=== PATIENT | male | born 1960 | race Caucasian/White ===

== ENCOUNTER 2017-08-13 08:41 | Day surgery (SDC) | payer BC ==
[~2017-08-13 08:41] MED LIST: Lactated Ringers 1,000 ML IV SCH; Lidocaine 2% 5 ML SDV ONE; Midazolam 1 MG/ML 2 ML SDV ONE; Propofol 200 MG/20 ML SDV ONE; Sodium Chloride 0.9% 10 ML Syringe FLUSH PRN; Sodium Chloride 0.9% 2.5 ML Syringe FLUSH PRN; fentaNYL 100 MCG/2 ML SDV ONE
--- NOTE | 2017-08-13 09:15 | PCM.PREANE ---
Preanesthetic Assessment - Anesthesia/Transfusion/Family Hx Anesthesia History: Prior Anesthesia Without Reaction Other Type of Anesthesia Reaction Comment: Denies any known problems Family History of Anesthesia Reaction: No Transfusion History: No Prior Transfusion(s) - Review of Systems General: No Symptoms Pulmonary: Other (severe ANGELIA, not yet fit with CPAP) Cardiovascular: No Symptoms Gastrointestinal: Other (hx of barretts, but no barretts found on last EGD) Neurological: No Symptoms Other: Reports: None - Physical Assessment NPO Status Date: 08/12/17 NPO Status Time: 07:30 (lori gabriel) Height: 1.93 m Weight: 163.293 kg ASA Class: 3 Mental Status: Alert & Oriented x3 Airway Class: Mallampati = 2 Dentition: Reports: Normal Dentition ROM/Head Extension: Full Lungs: Clear to Auscultation, Normal Respiratory Effort Cardiovascular: Regular Rate, Regular Rhythm - Allergies Allergies/Adverse Reactions: Allergies Allergy/AdvReac Type Severity Reaction Status Date / Time No Known Allergies Allergy Verified 08/10/17 09:51 - Acknowledgements Anesthesia Type Planned: MAC Pt an Appropriate Candidate for the Planned Anesthesia: Yes Alternatives and Risks of Anesthesia Discussed w Pt/Guardian: Yes Pt/Guardian Understands and Agrees with Anesthesia Plan: Yes PreAnesthesia Questionnaire - Past Health History Medical/Surgical History: Denies Medical/Surgical History HEENT History: Reports: Impaired Vision Other HEENT History: wears glasses Cardiovascular History: Reports: None Respiratory History: Reports: Other (See Below) Other Respiratory History: getting tested for sleep apnea on september 03 Gastrointestinal History: Reports: GERD, Other (See Below) Other Gastrointestinal History: barretts esophagus Genitourinary History: Reports: None Musculoskeletal History: Reports: Arthritis, Back Pain, Chronic, Fracture, Other (See Below) Other Musculoskeletal History: hx of fx finger, removal of lump from right axilla Neurological History: Reports: Other (See Below) Other Neuro History: restless leg syndrome Psychiatric History: Reports: Anxiety, Depression Endocrine/Metabolic History: Reports: Hypothyroidism, Obesity/BMI 30+ Hematologic History: Reports: None Immunologic History: Reports: None Oncologic (Cancer) History: Reports: None Dermatologic History: Reports: None - Past Surgical History Head Surgeries/Procedures: Reports: None HEENT Surgical History: Reports: None Cardiovascular Surgical History: Reports: None Respiratory Surgical History: Reports: None GI Surgical History: Reports: EGD, Hernia, Inguinal Male Surgical History: Reports: None Endocrine Surgical History: Reports: None Neurological Surgical History: Reports: None Oncologic Surgical History: Reports: None - SUBSTANCE USE Smoking Status *Q: Former Smoker Tobacco Use Within Last Twelve Months: No Days Per Week of Alcohol Use: 0 Number of Drinks Per Day: 0 Total Drinks Per Week: 0 Recreational Drug Use History: No - HOME MEDS Home Medications: Home Meds Aspirin 81 mg PO DAILY 09/27/13 [History] Levothyroxine 200 mcg PO DAILY 09/27/13 [History] Omeprazole [Prilosec] 20 mg PO ACBRK 09/27/13 [History] Fish Oil/[place]-3 Fatty Acids [Fish Oil 1,000 MG] 1 cap PO DAILY 07/25/15 [ History] Testosterone Cypionate [Depo-Testosterone] 1 dose IM ASDIRECTED 07/25/15 [ History] Acetaminophen with Codeine [Tylenol with Codeine #3 Tablet] 1 tab PO ASDIRECTED PRN 08/10/17 [History] Gabapentin [Neurontin] 2 tab PO TID 08/10/17 [History] Gluc HCl/Csa/Harvey Hy/Hyalur Ac [Glucosamine Chondroitin] 2 tab PO DAILY [History] LORazepam 1 tab PO ASDIRECTED PRN 08/10/17 [History] Meloxicam 15 mg PO ASDIRECTED 08/10/17 [History] Multivits-Minerals/FA/Lycopene [One Daily Men's Health Tablet] 1 tab PO DAILY [History] Pramipexole Di-HCl [Pramipexole Dihydrochloride] 1 tab PO BID 08/10/17 [History] buPROPion HCl [Wellbutrin Xl] 150 mg PO DAILY 08/10/17 [History] - CURRENT (IN HOUSE) MEDS Current Meds: Current Medications Lactated Ringer's (Ringers, Lactated) 1,000 mls @ 125 mls/hr IV ASDIRECTED [facility] Last Admin: 08/13/17 09:05 Dose: 125 mls/hr Sodium Chloride (Saline Flush) 10 ml FLUSH ASDIRECTED PRN PRN Reason: Keep Vein Open Sodium Chloride (Saline Flush) 2.5 ml FLUSH ASDIRECTED PRN PRN Reason: Keep Vein Open Sodium Chloride (Saline Flush) 10 ml FLUSH ASDIRECTED PRN PRN Reason: Keep Vein Open Sodium Chloride (Saline Flush) 2.5 ml FLUSH ASDIRECTED PRN PRN Reason: Keep Vein Open Discontinued Medications Fentanyl (Sublimaze) Confirm Administered Dose 100 mcg .ROUTE .STK-MED ONE Stop: 08/13/17 08:14 Lidocaine (Xylocaine-Mpf 2%) Confirm Administered Dose 5 ml .ROUTE .STK-MED ONE Stop: 08/13/17 08:14 Midazolam HCl (Versed 1 Mg/Ml) Confirm Administered Dose 2 mg .ROUTE .STK-MED ONE Stop: 08/13/17 08:14 Propofol (Diprivan 20 Ml) Confirm Administered Dose 400 mg .ROUTE .STK-MED ONE Stop: 08/13/17 08:14
[2017-08-13] MEDS ORDERED: Propofol 200 MG/20 ML SDV ONE ×3 (09:30→10:02)
--- NOTE | 2017-08-13 10:25 | PCM.OPNOTE ---
- General Post-Op/Procedure Note Date of Surgery/Procedure: 08/13/17 Operative Procedure(s): Diagnostic EGD and screening colonoscopy Findings: -Hyperplastic gastric polyp -Esophagitis -Cecal polyp @ 110 -Transverse colon polyp @ 80 -Rectal polyps x 2 Pre Op Diagnosis: Barrets esophagus, screening colonoscopy Post-Op Diagnosis: Hyperplastic gastric polyp, esophagitis, cecal polyp, transverse colon polyp, rectal poplyp x 2 Anesthesia Technique: MAC Primary Surgeon: Val Alvarez Condition: Good
--- NOTE | 2017-08-13 10:37 | PCM.POSTAN ---
POST ANESTHESIA ASSESSMENT - MENTAL STATUS Mental Status: Alert, Oriented - RESPIRATORY Respiratory Status: Respiratory Rate WNL, Airway Patent, O2 Saturation Stable - CARDIOVASCULAR CV Status: Pulse Rate WNL, Blood Pressure Stable - GASTROINTESTINAL GI Status: No Symptoms - POST OP HYDRATION Hydration Status: Adequate & Stable
--- NOTE | 2017-08-13 10:38 | PCM48HPAN ---
Post Anesthesia Note - EVALUATION WITHIN 48HRS OF ANESTHETIC Vital Signs in Normal Range: Yes Patient Participated in Evaluation: Yes Respiratory Function Stable: Yes Airway Patent: Yes Cardiovascular Function Stable: Yes Hydration Status Stable: Yes Pain Control Satisfactory: Yes Nausea and Vomiting Control Satisfactory: Yes Resp Rate: 15 - COMMENTS/OBSERVATIONS Free Text/Narrative:: pt and cautioned about the risk of worsening ANGELIA for the next few nights.
[2017-08-13 11:14] VITALS: BP 118/81
--- NOTE | 2017-08-13 14:54 | OR ---
SURGEON: ARIANNE MALLOY MD DATE OF PROCEDURE: 08/13/2017 PREOPERATIVE DIAGNOSES: 1. History of Cobian esophagus. 2. Screening colonoscopy. POSTOPERATIVE DIAGNOSES: 1. Esophagitis. 2. Hyperplastic gastric polyp. 3. Cecal polyp. 4. Transverse colon polyp. 5. Rectal polyp x2. PROCEDURES PERFORMED: Diagnostic esophagogastroduodenoscopy and screening colonoscopy. ANESTHESIA: MAC. INSTRUMENT USED: Olympus endoscope and colonoscope. EXTENT OF EXAM: To the second portion of duodenum, to the cecum. PREPARATION: Good. LIMITATIONS: None. INDICATION FOR EXAMINATION: The patient is a 56-year-old male, who presents with a past medical history significant for Cobian esophagus. His last biopsies were 3 years ago and showed moderate esophagitis. The patient has been on PPI therapy ever since. He is here for repeat endoscopy. On further questioning, he never undergone a colonoscopy. We discussed both procedures as well as expected perioperative course. We discussed the risks including bleeding, infection, or damage to surrounding structures including perforation. The patient verbalized understanding and wishes to proceed. PROCEDURE IN DETAIL: The patient was brought to the endoscopy suite and placed in a left lateral decubitus position. A time-out was completed verifying the patient's name, age, date of , allergies, and procedure to be performed. A bite block was placed in the patient's mouth and monitored anesthesia care was induced. Continuous oxygen was provided via nasal cannula throughout the procedure. After adequate sedation was achieved, a well lubricated endoscope was placed in the patient's mouth and advanced under direct visualization to the second portion of duodenum. This appeared normal and a photograph was taken. The scope was then fully withdrawn while examining the color, texture, anatomy, and integrity of the mucosa of the upper GI tract. The intestinal mucosa appeared normal. The scope was brought into the stomach and a photograph was taken of the pylorus as well as the GE junction. Both appeared normal. The patient was noted to have a hyperplastic polyp in the body of the stomach along the greater curvature. This was removed and sent to pathology, labeled as gastric polyp. No further biopsies in the stomach were taken. The scope was then brought into the distal esophagus. A photograph was taken of the Z-line. This appeared slightly irregular. Biopsies were taken at the Z-line and then 1 cm above this and an another centimeter above that. Four-quadrant biopsies were taken and sent to pathology. The area appeared to be hemostatic after these biopsies. The patient does appear to have some mild esophagitis. The remainder of the esophageal mucosa appeared normal and the scope was removed. This part of the procedure was terminated. A digital rectal exam was performed. This exam was within normal limits. A well lubricated colonoscope was inserted in the rectum and advanced under direct visualization to the level of the cecum. The cecum was identified by both visual and anatomic landmarks. Photograph was taken of cecal cap as well as with the scope retroflexed within the cecum. The patient was found to have a 5 to 6 mm pedunculated polyp just above the cecal cap at 110 cm. This was removed using a hot snare. This was then sent to pathology, labeled as cecal polyp. The patient was found to have another polyp in the transverse colon at 80 cm. This was removed in a similar fashion. The scope was brought into the rectum. The patient was noted to have two pedunculated rectal polyps measuring about 2 to 3 mm in size. These were removed one with a snare and one using a cold biopsy forceps. All areas were hemostatic at the time I left. The colon was normal. The scope was then retroflexed into the rectum and a photograph was taken of the anal canal opening. The scope was then straightened out and fully withdrawn. The cecum to anus time was greater than 20 minutes. The patient tolerated the procedure well and was taken to PACU in stable condition. ENDOSCOPIC DIAGNOSES: 1. Esophagitis. 2. Hyperplastic gastric polyp. 3. Cecal polyp. 4. Transverse colon polyp. 5. Rectal polyp x2. RECOMMENDATIONS: Follow up in clinic in 2 weeks to review the pathology. KYM NGUYEN /[id number]
== END 2017-08-13 10:57 | disposition home or self-care (01) ==
LOC: MW.SDS 08:41
PROVIDERS: ATTEND Surgery
DX: Z12.11 Encounter for screening for malignant neoplasm of colon (principal); D12.0 Benign neoplasm of cecum; D12.3 Benign neoplasm of transverse colon; K62.1 Rectal polyp; K29.50 Unspecified chronic gastritis without bleeding; K31.7 Polyp of stomach and duodenum; K20.9 Esophagitis, unspecified; K22.70 Barrett's esophagus without dysplasia; E03.9 Hypothyroidism, unspecified; G25.81 Restless legs syndrome; G47.30 Sleep apnea, unspecified; K21.9 Gastro-esophageal reflux disease without esophagitis; M19.90 Unspecified osteoarthritis, unspecified site; F41.9 Anxiety disorder, unspecified; F32.9 Major depressive disorder, single episode, unspecified; E66.9 Obesity, unspecified; Z68.41 Body mass index [BMI] 40.0-44.9, adult; Z79.82 Long term (current) use of aspirin; Z79.899 Other long term (current) drug therapy; Z98.890 Other specified postprocedural states; Z87.891 Personal history of nicotine dependence; Z80.0 Family history of malignant neoplasm of digestive organs
CPT/HCPCS: 43239; 45380; 45385; 88305; J2250; J3010; J7120; 00813; J2704

== ENCOUNTER 2020-08-21 11:08 | Day surgery (SDC) | payer BC ==
[~2020-08-21 11:08] MED LIST changes: -Lidocaine 2% 5 ML SDV ONE; +Sodium Chloride 0.9% 10 ML SDV IV PRN
--- NOTE | 2020-08-21 12:06 | PCM.PREANE ---
Preanesthetic Assessment - Anesthesia/Transfusion/Family Hx Anesthesia History: Prior Anesthesia Without Reaction Other Type of Anesthesia Reaction Comment: Denies any known problems Family History of Anesthesia Reaction: No Transfusion History: No Prior Transfusion(s) - Review of Systems General: No Symptoms Pulmonary: No Symptoms Cardiovascular: No Symptoms Gastrointestinal: No Symptoms Neurological: No Symptoms Other: Reports: None - Physical Assessment NPO Status Date: 08/21/20 NPO Status Time: 00:01 Vital Signs: Last Vital Signs Temp 97.2 F 08/21/20 11:38 Pulse 104 H 08/21/20 11:38 Resp 15 08/21/20 11:38 BP 130/78 08/21/20 11:38 Pulse Ox 99 08/21/20 11:38 Height: 6 ft 4 in Weight: 366 lb ASA Class: 3 Mental Status: Alert & Oriented x3 Airway Class: Mallampati = 2 Dentition: Reports: Normal Dentition ROM/Head Extension: Limited/Partial Lungs: Clear to Auscultation, Normal Respiratory Effort Cardiovascular: Regular Rate, Regular Rhythm - Allergies Allergies/Adverse Reactions: Allergies Allergy/AdvReac Type Severity Reaction Status Date / Time No Known Allergies Allergy Verified 08/15/20 15:18 - Anesthesia Plan Pre-Op Medication Ordered: None - Acknowledgements Anesthesia Type Planned: General Anesthesia Pt an Appropriate Candidate for the Planned Anesthesia: Yes Alternatives and Risks of Anesthesia Discussed w Pt/Guardian: Yes Pt/Guardian Understands and Agrees with Anesthesia Plan: Yes Additional Comments: npo after mn tob quit 2001 etoh occ morbid obesity bmi 43 depression anxiety rls has 3 brothers with hx esophageal CA par no questions PreAnesthesia Questionnaire - Past Health History Medical/Surgical History: Denies Medical/Surgical History HEENT History: Reports: Impaired Vision Other HEENT History: wears glasses Cardiovascular History: Reports: None Respiratory History: Reports: Sleep Apnea, Other (See Below) Other Respiratory History: uses CPAP Gastrointestinal History: Reports: Colon Polyp, GERD, Other (See Below) Other Gastrointestinal History: barretts esophagus Genitourinary History: Reports: None Musculoskeletal History: Reports: Arthritis, Fracture, Other (See Below) Other Musculoskeletal History: hx of fx finger, removal of lump from right axilla Neurological History: Reports: Other (See Below) Other Neuro History: restless leg syndrome Psychiatric History: Reports: Anxiety, Depression Endocrine/Metabolic History: Reports: Hypothyroidism, Obesity/BMI 30+ Hematologic History: Reports: None Immunologic History: Reports: None Oncologic (Cancer) History: Reports: None Dermatologic History: Reports: None - Past Surgical History Head Surgeries/Procedures: Reports: None HEENT Surgical History: Reports: None Cardiovascular Surgical History: Reports: None Respiratory Surgical History: Reports: None GI Surgical History: Reports: Colonoscopy, EGD, Hernia, Inguinal Male Surgical History: Reports: None Endocrine Surgical History: Reports: None Neurological Surgical History: Reports: None Musculoskeletal Surgical History: Reports: None Oncologic Surgical History: Reports: None Dermatological Surgical History: Reports: None - SUBSTANCE USE Tobacco Use Status *Q: Former Tobacco User Tobacco Use Within Last Twelve Months: No - HOME MEDS Home Medications: Home Meds Aspirin 81 mg PO DAILY 09/27/13 [History] Omeprazole [Prilosec] 2 tab PO DAILY 09/27/13 [History] Fish Oil/[place]-3 Fatty Acids [Fish Oil 1,000 MG] 1 cap PO DAILY 07/25/15 [History] Testosterone Cypionate [Depo-Testosterone] 1 dose IM ASDIRECTED 07/25/15 [History] Acetaminophen with Codeine [Tylenol with Codeine #3 Tablet] 1 tab PO ASDIRECTED PRN 08/10/17 [History] LORazepam 0.5 mg PO ASDIRECTED PRN 08/10/17 [History] Multivit-Minerals/FA/Lycopene [One Daily Men's Health Tablet] 1 tab PO DAILY 08/10/17 [History] DULoxetine HCl [Cymbalta] 60 mg PO ASDIRECTED 08/15/20 [History] Levothyroxine Sodium [Synthroid] 1 tab PO DAILY 08/15/20 [History] - CURRENT (IN HOUSE) MEDS Current Meds: Current Medications Lactated Ringer's (Ringers, Lactated) 1,000 mls @ 125 mls/hr IV ASDIRECTED [facility] Last Admin: 08/21/20 12:03 Dose: 125 mls/hr Documented by: Sodium Chloride (Sodium Chloride 0.9% 10 Ml Syringe) 10 ml FLUSH ASDIRECTED PRN PRN Reason: Keep Vein Open Sodium Chloride (Sodium Chloride 0.9% 2.5 Ml Syringe) 2.5 ml FLUSH ASDIRECTED PRN PRN Reason: Keep Vein Open Sodium Chloride (Sodium Chloride 0.9% 10 Ml Syringe) 10 ml FLUSH ASDIRECTED PRN PRN Reason: Keep Vein Open Sodium Chloride (Sodium Chloride 0.9% 2.5 Ml Syringe) 2.5 ml FLUSH ASDIRECTED PRN PRN Reason: Keep Vein Open Sodium Chloride (Sodium Chloride 0.9% 10 Ml Sdv) 10 ml IV ASDIRECTED PRN PRN Reason: IV Use Discontinued Medications Fentanyl (Fentanyl 100 Mcg/2 Ml Sdv) Confirm Administered Dose 100 mcg .ROUTE .STK-MED ONE Stop: 08/21/20 07:46 Lidocaine HCl (Lidocaine 1% 5 Ml Sdv) Confirm Administered Dose 5 ml .ROUTE .STK-MED ONE Stop: 08/21/20 07:47 Lidocaine HCl (Lidocaine 1% 5 Ml Sdv) Confirm Administered Dose 5 ml .ROUTE .STK-MED ONE Stop: 08/21/20 07:58 Midazolam HCl (Midazolam 1 Mg/Ml 2 Ml Sdv) Confirm Administered Dose 2 mg .ROUTE .STK-MED ONE Stop: 08/21/20 07:46 Propofol (Propofol 200 Mg/20 Ml Sdv) Confirm Administered Dose 200 mg .ROUTE .STK-MED ONE Stop: 08/21/20 07:46
--- NOTE | 2020-08-21 12:37 | PCM.OPNOTE ---
- General Post-Op/Procedure Note Date of Surgery/Procedure: 08/21/20 Operative Procedure(s): Diagnostic EGD with biopsy Findings: Hiatal hernia. No evidence of baez's on narrow band imaging and gross appearance Pre Op Diagnosis: History of barretts esophagus, hiatal hernia Post-Op Diagnosis: same Anesthesia Technique: MAC Primary Surgeon: Val Alvarez Condition: Good
--- NOTE | 2020-08-21 12:48 | PCM.POSTAN ---
POST ANESTHESIA ASSESSMENT - MENTAL STATUS Mental Status: Alert (no anesthetic problems), Oriented - VITAL SIGNS Vital Signs: Last Vital Signs Temp 97.2 F 08/21/20 11:38 Pulse 93 08/21/20 12:43 Resp 13 08/21/20 12:43 BP 120/76 08/21/20 12:43 Pulse Ox 93 L 08/21/20 12:43 - RESPIRATORY Respiratory Status: Respiratory Rate WNL, Airway Patent, O2 Saturation Stable - CARDIOVASCULAR CV Status: Pulse Rate WNL, Blood Pressure Stable - GASTROINTESTINAL GI Status: No Symptoms - POST OP HYDRATION Hydration Status: Adequate & Stable
[2020-08-21 12:56] VITALS: BP 126/69; PULSE 88
--- NOTE | 2020-08-21 13:10 | PCM48HPAN ---
Post Anesthesia Note - EVALUATION WITHIN 48HRS OF ANESTHETIC Vital Signs in Normal Range: Yes Patient Participated in Evaluation: Yes Respiratory Function Stable: Yes Airway Patent: Yes Cardiovascular Function Stable: Yes Hydration Status Stable: Yes Pain Control Satisfactory: Yes Nausea and Vomiting Control Satisfactory: Yes Mental Status Recovered: Yes Vital Signs: Last Vital Signs Temp 97.2 F 08/21/20 12:49 Pulse 88 08/21/20 12:49 Resp 14 08/21/20 12:49 BP 126/69 08/21/20 12:49 Pulse Ox 93 L 08/21/20 12:49
--- NOTE | 2020-08-22 09:46 | OR ---
SURGEON: VAL ALVAREZ MD DATE OF PROCEDURE: 08/21/2020 PREOPERATIVE DIAGNOSES: History of Cobian's esophagus, hiatal hernia. POSTOPERATIVE DIAGNOSES: History of Cobian's esophagus, hiatal hernia. PROCEDURE PERFORMED: Diagnostic esophagogastroduodenoscopy with biopsy. PRIMARY SURGEON: Val Alvarez MD ANESTHESIA: MAC. INSTRUMENT USED: Olympus endoscope. EXTENT OF EXAM: To the second portion of the duodenum. PREPARATION: Good. LIMITATIONS: None. INDICATIONS FOR EXAMINATION: The patient is a 59-year-old male who was diagnosed with Cobian's esophagus some years ago. He had an EGD 3 years ago, which showed chronic esophagitis but no evidence of Cobian's. He is here for a 3-year followup EGD. I explained the need for the procedure, expected perioperative course, and the risks. He verbalized understanding and wishes to proceed. PROCEDURE IN DETAIL: The patient was brought in to the endoscopy suite and placed in a beach chair position. A time-out was completed verifying the patient's name, age, date of , allergies, and procedure to be performed. A bite block was placed in the patient's mouth. Monitored anesthesia care was induced, and continuous oxygen was provided via face mask throughout the procedure. After adequate sedation was achieved, a well-lubricated endoscope was placed in the patient's mouth and advanced under direct visualization to the level of the second portion of duodenum. This appeared normal, and a photograph was taken. The scope was then straightened out and fully withdrawn while examining the color, texture, anatomy, and integrity of mucosa of the upper GI tract. The duodenum appeared normal. The scope was brought into the stomach, and photograph taken of the pylorus and GE junction. The patient had a hiatal hernia. There were small hyperplastic polyps within the body of the stomach. The scope was then brought into the distal esophagus. A photograph taken of the hiatal hernia sac as well as the Z-line. The Z-line grossly appeared normal. Narrow band imaging was done of the distal esophagus. This all appeared normal, and there was no evidence of irregular tissue. Three biopsies were taken at the level of the Z- line. Three biopsies were then randomly taken 1 cm above this, and another set of biopsies were taken 2 cm above the z line. They were sent to Pathology, labeled as such. The scope was removed, and the procedure was terminated. The patient tolerated the procedure well, was woken, and taken to PACU in stable condition. ENDOSCOPIC DIAGNOSES: History of Cobian's esophagus, hiatal hernia. RECOMMENDATIONS: Follow up in clinic in 2 weeks. KYM NGUYEN /[id number] MTDD
== END 2020-08-21 13:25 | disposition home or self-care (01) ==
LOC: MW.SDS 11:08
PROVIDERS: ATTEND Surgery
DX: K21.00 Gastro-esophageal reflux disease with esophagitis, without bleeding (principal); K22.8 Other specified diseases of esophagus; K31.7 Polyp of stomach and duodenum; K44.9 Diaphragmatic hernia without obstruction or gangrene; E03.9 Hypothyroidism, unspecified; D12.6 Benign neoplasm of colon, unspecified; G25.81 Restless legs syndrome; G47.30 Sleep apnea, unspecified; E66.01 Morbid (severe) obesity due to excess calories; Z87.19 Personal history of other diseases of the digestive system; Z79.82 Long term (current) use of aspirin; Z79.899 Other long term (current) drug therapy; Z98.890 Other specified postprocedural states; Z87.891 Personal history of nicotine dependence; Z68.42 Body mass index [BMI] 45.0-49.9, adult
CPT/HCPCS: 43239; 88305; J2250; J2704; J3010; J7120; 00731

== ENCOUNTER 2022-01-29 06:15 | Inpatient (IN) | payer OTHER ==
[~2022-01-29 06:15] MED LIST changes: +Dexmedetomidine 200 MCG/2 ML SDV ONE; +EPINEPHrine 1 MG/1 ML Amp ONE; +Famotidine 20 MG/2 ML SDV IVPUSH SCH; +Ketorolac 30 MG/ML SDV ONE; +Lidocaine 2% 5 ML SDV ONE; +Magnesium Sulfate (4.06 MEQ/ML) 5 GM/10 ML SDV ONE; +Metoclopramide 10 MG/2 ML SDV ONE; -Midazolam 1 MG/ML 2 ML SDV ONE; +Ondansetron 4 MG/2 ML SDV ONE; +Phenylephrine HCl In 0.9% NaCl 1 MG/10 ML Vial ONE; -Propofol 200 MG/20 ML SDV ONE; +Ropivacaine 49.25 ML, Ketorolac 30 MG, EPINEPHrine 0.5 MG, cloNIDine 80 MCG in Sodium C... INJECT SCH; +Scopolamine 1.5 MG Transdermal Patch TRDERM SCH; -Sodium Chloride 0.9% 10 ML SDV IV PRN; -Sodium Chloride 0.9% 10 ML Syringe FLUSH PRN; -Sodium Chloride 0.9% 2.5 ML Syringe FLUSH PRN; +Tranexamic Acid 1,000 MG in Sodium Chloride 0.9% 100 ML IV ONE; +Tranexamic Acid 1,000 MG/10 ML Vial ONE; +ceFAZolin 1 GM Vial ONE; -fentaNYL 100 MCG/2 ML SDV ONE; +propofoL 100 ML ONE
[2022-01-29] MEDS ORDERED: Bupivacaine 0.5% 30 ML SDV ONE (06:25)
[2022-01-29] MEDS ORDERED: Gabapentin 300 MG Cap ONE (06:44)
[2022-01-29] MEDS ORDERED: Gabapentin 300 MG Cap PO ONE (06:51)
[2022-01-29] MEDS ORDERED: Lactated Ringers 1,000 ML IV SCH (07:00)
[2022-01-29] MEDS ORDERED: Naloxone 0.4 MG/ML SDV IVPUSH PRN (07:12)
[2022-01-29] MEDS ORDERED: fentaNYL 50 MCG/ML SDV IVPUSH PRN (07:12)
[2022-01-29] MEDS ORDERED: Metoclopramide 10 MG/2 ML SDV IVPUSH PRN (07:12)
[2022-01-29] MEDS ORDERED: HYDROmorphone 1 MG/ML Syringe IVPUSH PRN (07:12)
[2022-01-29] MEDS ORDERED: Ondansetron 4 MG/2 ML SDV IVPUSH PRN ×2 (07:12→10:57)
[2022-01-29] MEDS ORDERED: Albuterol 0.083% 2.5 MG/3 ML Neb Soln NEB PRN (07:12)
[2022-01-29] MEDS ORDERED: Ketamine 500 mg/10 ML MDV ONE (07:53)
[2022-01-29] MEDS ORDERED: Phenylephrine HCl In 0.9% NaCl 1 MG/10 ML Vial ONE ×2 (08:31→12:19)
[2022-01-29] MEDS ORDERED: Glycopyrrolate 0.2 MG/ML SDV ONE (08:31)
[2022-01-29] MEDS ORDERED: Dexamethasone 4 MG/ML 5 ML MDV ONE (10:04)
[2022-01-29] MEDS ORDERED: Aluminum Hydroxide/Magnesium Hydroxide/Simethicone XS Susp 30 ML Cup PO PRN (10:57)
[2022-01-29] MEDS ORDERED: traMADol 50 MG Tab PO PRN (10:57)
[2022-01-29] MEDS ORDERED: Morphine 2 MG/ML SYRINGE IVPUSH PRN (10:57)
[2022-01-29] MEDS ORDERED: Bisacodyl 10 MG Supp RECTAL PRN (10:57)
[2022-01-29] MEDS ORDERED: diphenhydrAMINE 25 MG Cap PO PRN (10:57)
[2022-01-29] MEDS ORDERED: Sodium Chloride 0.9% 10 ML Syringe FLUSH PRN (10:57)
[2022-01-29] MEDS ORDERED: Sodium Chloride 0.9% 2.5 ML Syringe FLUSH PRN (10:57)
[2022-01-29] MEDS ORDERED: Acetaminophen/HYDROcodone 325-5 MG Tab PO PRN (11:02)
[2022-01-29] MEDS ORDERED: ePHEDrine 50 MG/ML SDV ONE (12:19)
[2022-01-29] MEDS ORDERED: propofoL 100 ML ONE (12:20)
[2022-01-29] MEDS ORDERED: Ondansetron 4 MG/2 ML SDV ONE (12:20)
[2022-01-29] MEDS ORDERED: ceFAZolin 1 GM Vial ONE (13:48)
[2022-01-29] MEDS: Ketorolac 30 MG/ML SDV IVPUSH SCH ×3 (13:58→23:28)
[2022-01-29] MEDS ORDERED: hydrALAZINE 20 MG/ML SDV ONE (14:16)
[2022-01-29] MEDS ORDERED: Lidocaine 2% 5 ML SDV ONE (14:16)
[2022-01-29] MEDS ORDERED: Lidocaine 1% 5 ML VIAL ONE (14:16)
[2022-01-29] MEDS ORDERED: DULoxetine 60 MG Cap PO SCH ×2 (15:00→21:00)
[2022-01-29] MEDS: ceFAZolin 2 GM in Premix Bag 1 BAG IV SCH ×2 (15:46→23:29)
[2022-01-29] MEDS ORDERED: Acetaminophen 325 MG Tab PO PRN (16:00)
[2022-01-29] MEDS: Acetaminophen 325 MG Tab PO SCH ×2 (17:41→23:28)
[2022-01-29] MEDS ORDERED: Aspirin 325 MG Tab PO SCH (19:00)
[2022-01-29] MEDS: Docusate Sodium 100 MG Cap PO SCH (20:59)
[2022-01-29] MEDS ORDERED: Mirtazapine 15 MG Tab PO SCH (21:00)
[2022-01-30] MEDS: Acetaminophen 325 MG Tab PO SCH (05:52)
[2022-01-30] MEDS: Ketorolac 30 MG/ML SDV IVPUSH SCH (05:52)
[2022-01-30] MEDS ORDERED: Levothyroxine 112 MCG Tab PO SCH (07:00)
[2022-01-30] MEDS ORDERED: Omeprazole 20 MG Cap.CR PO SCH (09:00)
[2022-01-30] MEDS ORDERED: Famotidine 20 MG Tab PO SCH (09:00)
[2022-01-30] MEDS ORDERED: Ibuprofen 800 MG Tab PO PRN (09:00)
[2022-01-30] MEDS ORDERED: Polyethylene Glycol 3350 Powder 17 GM Packet PO SCH (09:00)
[2022-01-30] MEDS ORDERED: Aspirin 325 MG Tab.EC PO SCH (09:00)
[2022-01-30] MEDS: Docusate Sodium 100 MG Cap PO SCH (09:04)
[2022-01-30 11:30] VITALS: BP 128/60; PULSE 88
== END 2022-01-30 11:30 | disposition home or self-care (01) | DRG 470 ==
LOC: MW.SDS 06:15 → MW.MS 12:48
PROVIDERS: ADMIT Orthopaedic Surgery; ATTEND Orthopaedic Surgery
PROC: 0SRD0J9 Replacement of Left Knee Joint with Synthetic Substitute, Cemented, Open Approach (ICD-10-PCS; principal; 2022-01-29)
DX: M17.12 Unilateral primary osteoarthritis, left knee (principal); H54.7 Unspecified visual loss; E03.9 Hypothyroidism, unspecified; F32.A Depression, unspecified; K21.9 Gastro-esophageal reflux disease without esophagitis; G47.30 Sleep apnea, unspecified; Z79.82 Long term (current) use of aspirin; Z79.890 Hormone replacement therapy; Z79.899 Other long term (current) drug therapy
CPT/HCPCS: 36415; 73560-26-LT; 73560-LT; 85014; 85018; 86850; 86900; 86901; 97110-GP; 97116-GP; 97161-GP; A9270-GY; J0131; J0171; J0360; J0690; J0735; J1100; J1885; J2405; J2704; J2765; J2795; J3475; J3490; J7120

== ENCOUNTER 2022-02-05 09:44 | Emergency (ER) | payer OTHER ==
[2022-02-05 11:18] LABS: POTASSIUM,K 4.6 mmol/L (3.5-5.1)
[2022-02-05 11:48] VITALS: BP 128/84; PULSE 96
== END 2022-02-05 13:13 | disposition home or self-care (01) ==
LOC: MW.ED 09:44
DX: M79.89 Other specified soft tissue disorders (principal); E66.9 Obesity, unspecified; Z68.41 Body mass index [BMI] 40.0-44.9, adult; Z79.899 Other long term (current) drug therapy; Z79.82 Long term (current) use of aspirin
CPT/HCPCS: 36415; 80053; 85025; 93971-26-LT; 93971-LT; 99284

== ENCOUNTER 2023-12-03 08:24 | Day surgery (SDC) | payer MEDICARE, OTHER ==
[~2023-12-03 08:24] MED LIST changes: -Dexmedetomidine 200 MCG/2 ML SDV ONE; -EPINEPHrine 1 MG/1 ML Amp ONE; -Famotidine 20 MG/2 ML SDV IVPUSH SCH; -Ketorolac 30 MG/ML SDV ONE; -Lidocaine 2% 5 ML SDV ONE; -Magnesium Sulfate (4.06 MEQ/ML) 5 GM/10 ML SDV ONE; -Metoclopramide 10 MG/2 ML SDV ONE; -Ondansetron 4 MG/2 ML SDV ONE; -Phenylephrine HCl In 0.9% NaCl 1 MG/10 ML Vial ONE; -Ropivacaine 49.25 ML, Ketorolac 30 MG, EPINEPHrine 0.5 MG, cloNIDine 80 MCG in Sodium C... INJECT SCH; -Scopolamine 1.5 MG Transdermal Patch TRDERM SCH; +Sodium Chloride 0.9% 10 ML Syringe FLUSH PRN; +Sodium Chloride 0.9% 2.5 ML Syringe FLUSH PRN; +Sodium Chloride 0.9% 20 ML SDV IV PRN; -Tranexamic Acid 1,000 MG in Sodium Chloride 0.9% 100 ML IV ONE; -Tranexamic Acid 1,000 MG/10 ML Vial ONE; -ceFAZolin 1 GM Vial ONE; -propofoL 100 ML ONE
[2023-12-03] MEDS: Lactated Ringers 1,000 ML IV SCH (09:10)
[2023-12-03] MEDS ORDERED: propofoL 50 ML ONE (11:24)
[2023-12-03] MEDS ORDERED: dexmedeTOMIDine HCl 200 MCG/2 ML SDV ONE (11:34)
[2023-12-03] MEDS ORDERED: Propofol 200 MG/20 ML SDV ONE (11:44)
[2023-12-03 12:38] VITALS: PULSE 80
[2023-12-03 12:39] VITALS: BP 156/96
== END 2023-12-03 12:37 | disposition home or self-care (01) ==
LOC: MW.SDS 08:24
PROVIDERS: ATTEND Surgery
DX: Z12.11 Encounter for screening for malignant neoplasm of colon (principal); K31.7 Polyp of stomach and duodenum; K22.89 Other specified disease of esophagus; K21.9 Gastro-esophageal reflux disease without esophagitis; E03.9 Hypothyroidism, unspecified; F32.A Depression, unspecified; J45.909 Unspecified asthma, uncomplicated; Z87.891 Personal history of nicotine dependence; Z79.890 Hormone replacement therapy; Z79.82 Long term (current) use of aspirin; Z79.899 Other long term (current) drug therapy
CPT/HCPCS: 43239; G0105; J2704; J7120; 00813; 88305; J3490

== ENCOUNTER 2024-01-24 09:43 | Emergency (ER) | payer MEDICARE, OTHER ==
[2024-01-24 10:26] LABS: BASOPHILS ABSOLUTE AUTO 0.03 K/uL (0.00-0.20); BASOPHILS PERCENT AUTO 0.4 % (0.0-1.0); EOSINOPHILS ABSOLUTE AUTO 0.08 K/uL (0.00-0.45); HEMATOCRIT 38.2 % (42.0-52.0); HEMOGLOBIN 13.1 g/dL (14.0-18.0); IMMATURE GRAN ABSOLUTE AUTO 0.05 K/uL (0.00-0.05); IMMATURE GRAN PERCENT AUTO 0.6 % (0.0-0.4); LYMPHOCYTES ABSOLUTE AUTO 1.11 K/uL (1.00-4.80); LYMPHOCYTES PERCENT AUTO 13.4 % (24.0-44.0); MEAN CORPUSCULAR HEMOGLOBIN 28.5 pg (28.0-32.0); MEAN CORPUSCULAR HGB CONC 34.3 g/dL (32.0-36.0); MEAN PLATELET VOLUME 10.2 fL (9.4-12.4); MONOCYTES ABSOLUTE AUTO 0.83 K/uL (0.00-0.80); NEUTROPHILS PERCENT AUTO 74.6 % (41.0-71.0); PLATELET COUNT,PLT 147 K/uL (150-400)
[2024-01-24 10:51] LABS: A/G RATIO 0.7 (0.9-1.6); ALBUMIN 3.2 g/dL (3.4-5.0); BILIRUBIN TOTAL 0.7 mg/dL (0.2-1.0); C-REACTIVE PROTEIN 21.28 mg/dL (<0.3); CARBON DIOXIDE,CO2 25.2 mmol/L (21.0-32.0); CREATININE 1.1 mg/dL (0.8-1.3); EST CRCL DRUG DOSING (CG) 82.2 mL/min; POTASSIUM,K 4.1 mmol/L (3.5-5.1); PROTEIN TOTAL,TP 7.6 g/dL (6.4-8.2)
[2024-01-24 11:34] VITALS: BP 111/66; PULSE 90
== END 2024-01-24 11:22 | disposition home or self-care (01) ==
LOC: MW.ED 09:43
DX: L03.116 Cellulitis of left lower limb (principal); K21.9 Gastro-esophageal reflux disease without esophagitis; E03.9 Hypothyroidism, unspecified; E66.9 Obesity, unspecified; Z79.899 Other long term (current) drug therapy; Z79.82 Long term (current) use of aspirin; Z79.890 Hormone replacement therapy; Z75.8 Other problems related to medical facilities and other health care; Z68.42 Body mass index [BMI] 45.0-49.9, adult
CPT/HCPCS: 36415; 80053; 85025; 85652; 86140; 99283

== ENCOUNTER 2024-12-29 06:24 | Observation (INO) | payer MEDICARE ==
[2024-12-29] MEDS ORDERED: Ropivacaine 49.25 ML, Ketorolac 30 MG, EPINEPHrine 0.5 MG, cloNIDine 80 MCG in Sodium C... INJECT SCH (07:00)
[2024-12-29] MEDS ORDERED: dexmedeTOMIDine HCl 200 MCG/2 ML SDV ONE (07:12)
[2024-12-29] MEDS ORDERED: fentaNYL 100 MCG/2 ML SDV IVPUSH ONE (07:17)
[2024-12-29] MEDS ORDERED: Ondansetron 4 MG/2 ML SDV ONE (07:19)
[2024-12-29] MEDS ORDERED: Ropivacaine 0.5% 5 MG/ML 30 ML SDV ONE (07:20)
[2024-12-29] MEDS: Lactated Ringers 1,000 ML IV SCH (07:21)
[2024-12-29] MEDS ORDERED: Naloxone 0.4 MG/ML SDV IVPUSH PRN (07:22)
[2024-12-29] MEDS ORDERED: Ondansetron 4 MG/2 ML SDV IVPUSH PRN ×2 (07:22→12:00)
[2024-12-29] MEDS ORDERED: Albuterol 0.083% 2.5 MG/3 ML Neb Soln NEB PRN (07:22)
[2024-12-29] MEDS ORDERED: propofoL 500 MG/50 ML 50 ML ONE ×3 (07:26→09:40)
[2024-12-29] MEDS: Midazolam 1 MG/ML 2 ML SDV IVPUSH ONE ×2 (07:34→13:06)
[2024-12-29] MEDS: fentaNYL 50 MCG/ML SDV IVPUSH PRN (07:35)
[2024-12-29] MEDS: fentaNYL 50 MCG/ML SDV ONE (07:37)
[2024-12-29] MEDS ORDERED: Sodium Chloride 0.9% 10 ML Syringe FLUSH PRN (08:00)
[2024-12-29] MEDS ORDERED: Sodium Chloride 0.9% 2.5 ML Syringe FLUSH PRN (08:00)
[2024-12-29] MEDS ORDERED: Ketamine HCL/NACL, ISO-OSM 50 MG/5 ML Syringe ONE ×2 (08:15→09:12)
[2024-12-29] MEDS ORDERED: ceFAZolin 3 GM Vial ONE (08:34)
[2024-12-29] MEDS ORDERED: ePHEDrine 50 MG/ML SDV ONE (08:43)
[2024-12-29] MEDS ORDERED: Phenylephrine 1% 10 MG/ML SDV ONE (08:57)
[2024-12-29] MEDS ORDERED: Ketorolac 30 MG/ML SDV ONE (10:28)
[2024-12-29] MEDS ORDERED: Propofol 200 MG/20 ML SDV ONE ×2 (10:33→10:57)
[2024-12-29] MEDS: ceFAZolin 3 GM in Water For Injection, Sterile 30 ML IVPUSH ONE (13:06)
[2024-12-29] MEDS: fentaNYL 100 MCG/2 ML SDV IVPUSH ONE (13:06)
[2024-12-29] MEDS: Ketorolac 30 MG/ML SDV IVPUSH SCH ×2 (13:15→16:51)
[2024-12-29] MEDS: ceFAZolin 2 GM in Water For Injection, Sterile 20 ML IVPUSH SCH (16:56)
[2024-12-29] MEDS ORDERED: PREGABALIN 225 MG PO SCH (21:00)
[2024-12-30 06:07] LABS: BASOPHILS ABSOLUTE AUTO 0.04 K/uL (0.00-0.20); BASOPHILS PERCENT AUTO 0.4 % (0.0-1.0); EOSINOPHILS ABSOLUTE AUTO 0.23 K/uL (0.00-0.45); EOSINOPHILS PERCENT AUTO 2.5 % (0.0-6.0); IMMATURE GRAN ABSOLUTE AUTO 0.04 K/uL (0.00-0.05); IMMATURE GRAN PERCENT AUTO 0.4 % (0.0-0.4); LYMPHOCYTES ABSOLUTE AUTO 0.87 K/uL (1.00-4.80); LYMPHOCYTES PERCENT AUTO 9.4 % (24.0-44.0); MEAN PLATELET VOLUME 10.9 fL (9.4-12.4); MONOCYTES ABSOLUTE AUTO 0.90 K/uL (0.00-0.80); MONOCYTES PERCENT AUTO 9.8 % (0.0-8.0); NEUTROPHILS ABSOLUTE AUTO 7.15 K/uL (1.80-7.70); NEUTROPHILS PERCENT AUTO 77.5 % (41.0-71.0); NRBC ABSOLUTE 0.00 K/uL (0.00-0.02); NRBC PERCENT 0.0 /100WBC (0.0-0.2); PLATELET COUNT,PLT 163 K/uL (150-400); RED BLOOD CELL COUNT 3.95 M/uL (4.52-5.90); WHITE BLOOD CELL COUNT,WBC 9.23 K/uL (3.9-11.3)
[2024-12-30 06:34] LABS: A/G RATIO 1.0 (0.9-1.6); ALANINE AMINOTRANSFERASE,ALT 25.0 IU/L (14-63); ASPARTATE AMNIOTRANSFERASE,AST 24.0 IU/L (15-37); BILIRUBIN TOTAL 0.4 mg/dL (0.2-1.0); BLOOD UREA NITROGEN,BUN 16.0 mg/dL (7.0-18.0); CARBON DIOXIDE,CO2 27.8 mmol/L (21.0-32.0); CHLORIDE,CL 104.0 mmol/L (98-107); CREATININE 1.1 mg/dL (0.8-1.3); EST CRCL DRUG DOSING (CG) 81.1 mL/min; GLUCOSE RANDOM 122.0 mg/dL (74-106); POTASSIUM,K 4.5 mmol/L (3.5-5.1); PROTEIN TOTAL,TP 6.3 g/dL (6.4-8.2); SODIUM,NA 139.0 mmol/L (136-148)
[2024-12-30 06:36] LABS: ESTIMATED GFR 74.0 mL/min (>60)
[2024-12-30] MEDS: buPROPion 150 MG Tab.ER PO SCH (09:56)
[2024-12-30 12:17] VITALS: BP 181/98; PULSE 98
== END 2024-12-30 12:17 | disposition home or self-care (01) ==
LOC: MW.SDS 06:24 → MW.MS 12:29
PROVIDERS: ADMIT Orthopaedic Surgery; ATTEND Orthopaedic Surgery
DX: M17.11 Unilateral primary osteoarthritis, right knee (principal); E03.9 Hypothyroidism, unspecified; E66.9 Obesity, unspecified; G47.33 Obstructive sleep apnea (adult) (pediatric); K21.9 Gastro-esophageal reflux disease without esophagitis; Z68.30 Body mass index [BMI] 30.0-30.9, adult; Z79.82 Long term (current) use of aspirin; Z87.891 Personal history of nicotine dependence; Z79.899 Other long term (current) drug therapy; Z79.890 Hormone replacement therapy
CPT/HCPCS: 27447; 36415; 64447; 73560; 80053; 85025; 86850; 86900; 86901; 97110; 97162; 97530; A4216; A9270; C1776; J0166; J0690; J0735; J1308; J1885; J2250; J2371; J2704; J2795; J3010; J7120; 01402; J2405; J3490